=== PATIENT | female | born 1995 | race Caucasian/White ===

== ENCOUNTER 2023-10-31 12:51 | Outpatient (CLI) | payer MEDICAID, SELFPAY ==
--- NOTE | 2023-10-31 13:00 | CRLHL7_ITS ---
For Patients: As a result of the Cures Act, medical imaging exams and procedure reports are released immediately into your electronic medical record. You may view this report before your referring provider. If you have questions, please contact your health care provider. INDICATION: First trimester scan, establish dates. COMPARISON: None. TECHNIQUE: Real-time schafer-scale imaging of the pelvis was performed. FINDINGS: Sonographic imaging demonstrates a single living intrauterine gestation. The embryo demonstrates a regular cardiac rate measuring 165 beats per minute. The embryo`s crown-rump length measurement of 4.1 cm corresponds to a gestational age of 11 weeks 0 days with a sonographic due date of 05/21/2024. There is a normal-appearing yolk sac. There are no gross abnormalities noted within the embryo at this early state of development. The gestational sac has a normal appearance. There is no evidence of a perigestational hemorrhage. The amount of fluid within the sac appears appropriate for gestational age. The cervix is closed. The myometrium appears normal. The ovaries are of normal size. Corpus luteal cyst right ovary. There are no suspicious fluid collections noted in the cul-de-sac. IMPRESSION: Single living intrauterine with sonographic gestational age 11 weeks 0 days and a sonographic due date of 05/21/2024. Dictated by Sam Zhou MD @ 10/31/2023 2:50:49 PM (Electronically Signed)
== END 2023-10-31 12:52 | disposition home or self-care (01) ==
LOC: US 12:52
PROVIDERS: Visit Provider Advanced Practice Midwife
DX: Z34.91 Encounter for supervision of normal pregnancy, unspecified, first trimester (principal); Z3A.09 9 weeks gestation of pregnancy
CPT/HCPCS: 76817; 86592; 86703; 86704; 86706; 86762; 86787; 86803; 86850; 86900; 86901; 87086; 87340

== ENCOUNTER 2023-10-31 14:27 | Outpatient (CLI) | payer OTHER, SELFPAY | END 2023-10-31 14:28 | disposition home or self-care (01) | PROVIDERS: Visit Provider Advanced Practice Midwife | DX: Z34.91 Encounter for supervision of normal pregnancy, unspecified, first trimester (principal); Z3A.09 9 weeks gestation of pregnancy | CPT/HCPCS: 86592; 86703; 86704; 86706; 86762; 86787; 86803; 86850; 86900; 86901; 87086; 87340 ==

== ENCOUNTER 2023-11-29 10:35 | Outpatient (CLI) | payer MEDICAID, SELFPAY | END 2023-11-29 10:36 | disposition home or self-care (01) | LOC: NFLDREF 12-03 15:15 | PROVIDERS: Visit Provider Obstetrics & Gynecology | DX: Z11.3 Encounter for screening for infections with a predominantly sexual mode of transmission (principal) | CPT/HCPCS: 87491; 87522; 87591 ==

== ENCOUNTER 2023-12-26 11:16 | Outpatient (CLI) | payer MEDICAID, SELFPAY ==
--- NOTE | 2023-12-26 11:15 | CRLHL7_ITS ---
For Patients: As a result of the Century Cures Act, medical imaging exams and procedure reports are released immediately into your electronic medical record. You may view this report before your referring provider. If you have questions, please contact your health care provider. INDICATION: Evaluate anatomy. COMPARISON: 10/31/2023 TECHNIQUE: Real time schafer scale imaging of the fetus was performed as well as color Doppler analysis of the umbilical vessels. FINDINGS: Sonographic imaging demonstrates a single living intrauterine gestation. Fetus demonstrates a regular cardiac rate of 149 beats per minute. Fetus has a variable position. The placenta lies posteriorly. Possible succenturiate placenta. Placental edge is located 5.2 cm from the internal cervical os. Amniotic fluid volume appears normal. Single deepest vertical pocket: 3.8 cm. The cervix is closed and measures 4.1 cm in length. The composite ultrasound gestational age is calculated at 19 weeks 4 days with an estimated sonographic due date of 05/17/2024. The estimated weight is 295 grams which lies at the 74th %. The following biometric measurements were obtained: Biparietal diameter: 4.5 cm/19 weeks 4 days 74th% Head circumference: 16.7 cm/19 weeks 3 days 61st% Abdominal circumference: 14.6 cm/19 weeks 6 days 75th% Femur length: 2.9 cm/19 weeks 0 days 44th% The HC/AC ratio measures: 1.14 range (1.08-1.26) On anatomic survey, there is a normal appearance of the cerebral ventricles, cavum septi pellucidi, cisterna magna and cerebellum. The nose, lips, and facial profile appear normal. The cervical, thoracic and lumbar spine are well visualized and appear normal. There is a incomplete visualization of the four-chamber heart view. The left and right ventricular outflow tracts appear normal. The diaphragm and stomach appear normal. The kidneys and bladder also appear normal. There is a normal three-vessel cord and cord insertion site. The four extremities appear normal. IMPRESSION: Concordance of clinical and sonographic dating. Incomplete visualization of the four-chamber heart. Remainder of the anatomic survey is normal. Short-term follow-up recommended. Possible succenturiate placenta. Follow-up recommended. No previa. Dictated by Sam Zhou MD @ 12/28/2023 7:27:26 AM (Electronically Signed)
== END 2023-12-26 11:17 | disposition home or self-care (01) ==
LOC: US 11:18
PROVIDERS: Visit Provider Obstetrics & Gynecology
DX: Z34.92 Encounter for supervision of normal pregnancy, unspecified, second trimester (principal); Z3A.19 19 weeks gestation of pregnancy
CPT/HCPCS: 76805; 87522

== ENCOUNTER 2024-02-27 09:36 | Outpatient (CLI) | payer MEDICAID, SELFPAY | END 2024-02-27 09:37 | disposition home or self-care (01) | LOC: NFLDREF 02-29 05:46 | PROVIDERS: Visit Provider Obstetrics & Gynecology | DX: Z34.93 Encounter for supervision of normal pregnancy, unspecified, third trimester (principal); Z3A.28 28 weeks gestation of pregnancy | CPT/HCPCS: 86592 ==

== ENCOUNTER 2024-03-28 12:06 | Outpatient (CLI) | payer MEDICAID, SELFPAY ==
--- NOTE | 2024-03-28 12:15 | CRLHL7_ITS ---
For Patients: As a result of the Cures Act, medical imaging exams and procedure reports are released immediately into your electronic medical record. You may view this report before your referring provider. If you have questions, please contact your health care provider. OBSTETRICAL ULTRASOUND ??? FOLLOW-UP INDICATION: Malformation of placenta (bilobed). MICHAEL by US: 05/21/2024 Gestational age: 32 weeks 2 days GESTATION: Single COMPARISON: 01/16/2024 TECHNIQUE: Realtime schafer-scale imaging of the fetus was performed transabdominal. FINDINGS: Cervix: Not visualized positioning: Vertex Amniotic fluid: 4.0 cm SDP Placenta technique: Transabdominal Placenta position: Anterior, posterior, left wall heart rate: 154 bpm BIOMETRY: BPD: 8.5 cm, 34 weeks 0 days, 88% HC: 30.9 cm, 34 weeks 4 days, 73% AC: 29.9 cm, 33 weeks 6 days, 89% FL: 6.3 cm, 32 weeks 4 days, 46% FL/AC Ratio: 21.06% HC/AC ratio: 1.03 EFW: 2232 grams; 4 lbs. 15 oz. age by this ultrasound: 33 weeks 5 days MICHAEL by this US: 05/11/2024 Percentile by MICHAEL: 80.5% IMPRESSION: 1. Sonographic gestational age of 33 weeks 5 days and sonographic due date of 05/11/2024. Sonographic age 10 days ahead of the clinical age. 2. Estimated weight is 81st percentile. Abdominal circumference is 89th percentile. SAM DICKERSON M.D. Diagnostic Radiologist [email or web address] Transcribed: 2:[address]/Dictated by: Sam Dickerson MD @ 03/28/2024 1:28:00 PM (Electronically Signed)
== END 2024-03-28 12:07 | disposition home or self-care (01) ==
LOC: US 12:07
PROVIDERS: Visit Provider Obstetrics & Gynecology
DX: O43.193 Other malformation of placenta, third trimester (principal); Z3A.32 32 weeks gestation of pregnancy
CPT/HCPCS: 76816

== ENCOUNTER 2024-04-09 09:18 | Outpatient (CLI) | payer MEDICAID, SELFPAY | END 2024-04-09 09:19 | disposition home or self-care (01) | LOC: NFLDREF 04-11 01:29 | PROVIDERS: Visit Provider Obstetrics & Gynecology | DX: Z34.93 Encounter for supervision of normal pregnancy, unspecified, third trimester (principal); Z3A.34 34 weeks gestation of pregnancy | CPT/HCPCS: 82728 ==

== ENCOUNTER 2024-04-23 10:30 | Outpatient (CLI) | payer MEDICAID, SELFPAY | END 2024-04-23 10:31 | disposition home or self-care (01) | LOC: NFLDREF 04-25 08:06 | PROVIDERS: Visit Provider Obstetrics & Gynecology | DX: Z34.83 Encounter for supervision of other normal pregnancy, third trimester (principal) | CPT/HCPCS: 87081; 87653 ==

== ENCOUNTER 2024-05-27 17:03 | Inpatient (IN) | payer MEDICAID, SELFPAY ==
--- NOTE | 2024-05-27 17:40 | P.OBHP_ITS ---
OB - H&P: HPI Labor/Induction History of Present Illness Date Seen: 05/27/24 Chief Complaint: The patient is a 29 year old 2 para 1001 at 40 6/7 weeks gestation by early ultrasound, who presents for induction of labor secondary to postdates gestation. Chief complaint: Postdates IOL : 2 Para: 1 Indications for induction: prolonged Narrative: She denies contractions, unusual vaginal discharge, vagianl bleeding or leakage of fluid. Her fetus is active. Her full H&P was done by Dr. Mars on 05/01/2024. Specific Issues/Plans , Partner: Geo Colvin Daughter Helene Baby: Hue H&P by [facility] on 05/01/24 #Bilobed vs succturate placenta * thin connection visualized * Level II follow up scan: 01/16/2024. Bilobed placenta (posterior and fundal left/lateral) with normal cord insertion into the posterior aspect. * Growth ultrasound recommended at 32 weeks gestation: EFW 80.5% * Increased risk for retained products of conception after # History of genital herpes * Valtrex at 36 weeks: Prescribed 04/23/2024 # History of genital warts # Tobacco abuse - e-cig * As of 32 weeks, she is down to 0% nicotine on vape # History of substance abuse. Completed treatment. Has been sober since age 17 * Prefers to avoid opioids if possible # Obesity BMI 34.6 at [facility] # History of Hepatitis C, + Antibody screen at [facility] Per patient, she had this many years ago and was explained to her as dormant and would go away VU signed and faxed for [facility] on 11/29/2023 Hep C quant NAAT lab ordered drawn 12/25 - Negative #Anemia at 28 wks 10.7 at 34 weeks on 04/09/24 hgb: 10.3 Ferrous sulfate 2 tabs QOD with meals. Imagin01/16/24 Level 2 US ([facility]): EFW 21%, bi-lobed placenta (left lateral/fundal) with normal cord insertion into the posterior portion, no anomalies. Rec: growth US at 32 weeks gestation. 03/28/2024 US for EFW: Vertex. SDP 4.0 cm. Anterior, posterior and left wall placenta, no previa. EFW 2232 g, 4 lb 15 oz, 81%. BPD 88%, HC 73%, AC 89%, FL 46% Vaccinations: COVID: declined Flu: declined Tdap: 03/14/2024 RSV: 04/23/2024 32 week mental health: NAKUL = 2, PHQ = 1 Last pap: 2022, NILM, negative HPV GBS negative 04/23 History of Present Dating criteria: based on 1st trimester US only care: good care Ultrasounds: normal 1st trimester US and normal mid trimester US (bilobed placenta seen) Medical complications: none Labs Blood type: O (+) positive Rubella: immune RPR/VDLR: nonreactive GBS status: negative HBsAG: negative Narrative: Hep C antibody reactive Review of Systems Status of ROS: Reports: 10 or more systems reviewed and unremarkable except as noted in History and below Meds Home Medications and Allergies Home Medications ?Medication ?Instructions ?Recorded ?Confirmed ?Type HCD-pecb-SL-omega 3-fat com #1 27 cap PO 10/31/23 05/21/24 History mg-1 mg-300 mg capsule Allergies Allergy/AdvReac Type Severity Reaction Status Date / Time No Known Allergies Allergy Unknown Verified 05/21/24 10:36 OB - H&P: Exam Constitutional: Constitutional: no acute distress Routine Respiratory Exam: Respiratory: Absent respiratory distress Detailed Labor and Delivery Exam: Patient Gravid: Yes Dilation (cm): 2 Effacement (%): 50 Cervix position: mid Consistency: firm Tachysystole: No Comments: No genital lesions noted Fetus (Single): Station: -2 (ballotable) Amniotic Membrane Status: intact Heart Rate Baseline: 140 Monitor Accelerations: Present Monitor Decelerations: None OB - Problem Based A/P Additional Plan (1) Post-dates : Status: Acute (2) Bilobed placenta: Status: Acute (3) Hepatitis C antibody test positive: Status: Acute (4) History of herpes genitalis: Status: Acute Delivery/Labor/Induction Plan Plan: induction Induction method: per misoprostol protocol (2 doses q4 hours tonight. Begin pitocin per protocol at 6:00 am tomorrow.)
[2024-05-27 17:56] VITALS: BP 120/72; PULSE 79; PULSE 81; O2SAT 98
[2024-05-27 18:10] VITALS: BMI 37.5
[2024-05-27] MEDS: miSOPROStoL 25 MCG/0.25 TABLET VAGINAL ×2 (18:46→22:16)
[2024-05-27 19:31] VITALS: BP 125/72; PULSE 86; TEMP 36.6
[2024-05-27 19:32] VITALS: PULSE 90; O2SAT 98
[2024-05-27 22:13] VITALS: BP 123/74; PULSE 78; PULSE 81; TEMP 36.7; O2SAT 96
[2024-05-27 22:56] LABS: Basophils Absolute Auto 0.03 K/uL (0.00-0.30); Basophils Percent Auto 0.3 % (0.0-3.0); Eosinophils Absolute Auto 0.06 K/uL (0.00-0.50); Eosinophils Percent Auto 0.7 % (0.0-7.0); Hematocrit 33.2 % (33.0-51.0); Immature Granulocytes Abs Auto 0.21 K/uL (0.00-0.30); Immature Granulocytes Pct Auto 2.4 %; Lymphocytes Absolute Auto 2.09 K/uL (0.90-2.90); Lymphocytes Percent Auto 24.1 % (20-44); Mean Corpuscular HGB Conc 33 gm/dL (32-36); Mean Corpuscular Hemoglobin 31 pg (26-34); Mean Corpuscular Volume 93 fL (80-100); Monocytes Percent Auto 6.2 % (0.0-11.0); Neutrophils Absolute Auto 5.74 K/uL (1.7-7.0); Neutrophils Percent Auto 66.3 % (42.0-72.0); Platelet Count* 245 K/uL (140-440); RDW Coefficient of Variation % 14.4 % (11.5-15.5); Red Blood Count 3.59 m/uL (4.00-5.20); White Blood Count* 8.67 K/uL (4.50-11.00)
[2024-05-27 22:58] LABS: Slide Review Reflex No
[2024-05-28] VITALS (36 sets, daily range): BP systolic 95–148; BP diastolic 50–81; PULSE 67–106; RESP 16–18; TEMP 36.6–36.7; O2SAT 97–100
[2024-05-28] MEDS: hydrOXYzine pamoate 25 MG CAPSULE 100 MG PO (02:00)
[2024-05-28] MEDS: LACTATED RINGERS 1000 ML 1,000 ML IV (02:53)
[2024-05-28] MEDS: fentaNYL 250 MCG/5 ML inj 100 MCG EPIDURAL (03:24)
[2024-05-28] MEDS: ROPIVACAINE 0.2% 100 ml 100 ML 12 MG EPIDURAL (03:26)
[2024-05-28] MEDS: LIDOCAINE 2% (PF) 5 ML VIAL EPIDURAL (03:26)
--- NOTE | 2024-05-28 03:35 | P.ANBPRC_ITS ---
[facility] Medical History History of hepatitis C ?Z86.19 - Personal history of other infectious and parasitic diseases (ICD- 10) History of herpes genitalis ?Z86.19 - Personal history of other infectious and parasitic diseases (ICD- 10) History of substance abuse ?F19.11 - Other psychoactive substance abuse, in remission (ICD-10) Normal spontaneous vaginal delivery ?O80 - Encounter for full-term uncomplicated delivery (ICD-10) History of depression ?Z86.59 - Personal history of other mental and behavioral disorders (ICD-10) Surgical History [place] teeth extracted ?K08.409 - Partial loss of teeth, unspecified cause, unspecified class (ICD- 10) No significant past surgical history Family History Maternal Grandmother Ovarian cancer Paternal Grandmother Heart disease Maternal Grandfather Prostate cancer Mother High blood pressure Father High cholesterol Social History Narrative: SOCIAL Education: some college Work: housekeeping and front end architect at [employer] Partner: Geo Colvin - significant other general education professor at [employer] Lives with: partner and daughter Pets: 2 cats and 2 dogs Abuse: Denies past/present Special Diet: Denies Ok with a blood transfusion: yes Culture or islam beliefs: denies RISK FACTORS Exercise Times/wk: at work and walk dogs most days Depression/Anxiety: situational after getting sober NAKUL: 1 PHQ 9: 2 Seat Belt Use: Routinely Smoking: uses e-cigarettes. Trying to cut back further but has reduced some already. Alcohol/day: Denies while Caffeine: 1 cup coffee Drug Use: Denies present. 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 Rarely consumes alcohol Smoker- uses E cigarettes. 4-5 x/day What is your current living situation?: I presently have a place to live Problems where you live: no known problems In the past 12 months, utilities in danger of being shut off: no In past 12 months, lack of transportation kept you from medical appts, meetings, work, or getting things needed for daily living: no In the past 12 mos, have been you worried that your food would run out before you had money to buy more?: never true In the past 12 mos, the food you bought just didn't last and you didn't have money to buy more?: never true Smoking Status: Current every day smoker How often does anyone, including family, friends and others, physically hurt you : never How often does anyone, including family, friends and others, insult or talk down to you: never How often does anyone, including family, friends and others, threaten you with harm: never How often does anyone, including family, friends and others, scream or curse at you: never Meds Home Medications and Allergies Home Medications ?Medication ?Instructions ?Recorded ?Confirmed ?Type IUR-bbzj-GR-omega 3-fat com #1 27 1 cap PO DAILY 10/31/23 05/27/24 History mg-1 mg-300 mg capsule Allergies Allergy/AdvReac Type Severity Reaction Status Date / Time No Known Allergies Allergy Unknown Verified 05/27/24 18:01 Results Labs Labs: Laboratory Results - last 24 hr 05/27/24 22:10 WBC 8.67 RBC 3.59 L Hgb 11.0 L Hct 33.2 MCV 93 MCH 31 MCHC 33 RDW Coeff of Gagan 14.4 Plt Count 245 Neut % (Auto) 66.3 Lymph % (Auto) 24.1 [place]idan % (Auto) 6.2 Eos % (Auto) 0.7 Baso % (Auto) 0.3 Neut # (Auto) 5.74 Lymph # (Auto) 2.09 [place]idan # (Auto) 0.50 Eos # (Auto) 0.06 Baso # (Auto) 0.03 Abs Immat Gran (auto) 0.21 Imm/Tot Granulo (auto) 2.4 Vital Signs Vital Signs: Last Vital Signs Temp 98.1 F 05/27/24 22:13 Pulse 90 05/28/24 03:29 BP 133/62 05/28/24 03:29 Pulse Ox 100 05/28/24 03:26 Weight: 122.016 kg Height: 180.34 cm Anesthesia Procedures Epidural Insertion Patient Location: OB Start Time: :45 Stop Time: 03:45 Start Date: 05/28/24 Stop Date: 05/28/24 Reason for Block: primary anesthetic Patient Position: sitting Performed By: Bruce Alejandre Preanesthetic Checklist: IV checked, risks and benefits discussed, surgical consent, monitors and equipment checked, pre-op evaluation, timeout performed and anesthesia consent Prep: chlorhexidine gluconate Monitoring: blood pressure monitoring, court recording monitor, continuous pulse oximetry and heart rate Approach: midline Vertebral Space: lumbar (1-5) Needle Type: Tuohy needle Injection Technique: continuous catheter Needle gauge: 17 Needle Length (cm): 10 cm Needle Insertion Depth (cm): 6 Catheter Gauge: 19 Catheter Type: multi-orifice Catheter at skin depth (cm): 12 Test Dose Result: negative and lidocaine 1.5% with epinephrine 1 to 200,000 Events: other
[2024-05-28] MEDS: LACTATED RINGERS 1000 ML 1,000 ML 125 ML IV (04:31)
[2024-05-28] MEDS: OXYTOCIN 30 unit/500 ML in NS 30 UNIT/500 ML BAG 300 UNIT IVPB (05:48)
[2024-05-28] MEDS: LIDOCAINE 1 % PF 30 ML INJECTION (05:51)
--- NOTE | 2024-05-28 06:18 | W.PM.OBVAGDE ---
OB Procedure Vag Delivery Mother Details Mother Details: The patient is a 29 year-old, 2, Para 1001, admitted on 05/27/24 at 40 6/7 weeks gestation for postdates induction of labor. Chaves score was 6 at the time of admission. : 2 Para: 1 Weeks Gestation: 41 Admission Date: 05/27/24 Additional Details Amniotic Membrane Status: intact Amniotic Membrane Rupture Date: 05/28/24 (uncertain time) Amniotic Membrane Fluid Description: Clear Analgesia/Anesthesia Type: Epidural Waterbirth: No Pitcoin: No Intrapartal Events: Labor Induction Induction Method: per misoprostol protocol (received 2 doses 25 mcg PV) Labor Onset: 02:35 (05/28/24) Complete: 04:13 Pushin:21 Heart: heart tones during second stage were 120s baseline with good variability. Delivery Details Delivery Date: 05/28/24 Delivery Time: 05:43 Route of delivery: Gender: Female Infant Viability: Alive; Heart Rate Present Position at Delivery: OA Delivery Details: Delivered via spontaneous vaginal delivery. was placed on maternal abdomen.? Cord was clamped and cut after a 30-60 second delay. Nose and mouth were bulb suctioned.? Infant weight pending. 1 Minute Interval Total Score: 7 5 Minute Interval Total Score: 8 Additional Details Shoulder Dystocia: No Placenta Delivery Time: 05:48 Placental Delivery Description: Spontaneous (bilobed placenta) Delivery repair: Chromic Procedure Done: Global Blood Loss: 200 Laceration: Perineal - 2nd Degree Episiotomy Description: None Blood Loss Measurement Type: QBL Bakri Used: No Sponge/Need Count Correct: Yes Cord Vessel Description: 3 Vessels Event Summary Status: Mother and were stable after delivery. Disposition: floor
[2024-05-28] MEDS: IBUPROFEN 600 MG TABLET PO ×2 (07:53→14:41)
--- NOTE | 2024-05-28 11:50 | PM.ANPOST ---
Post Anesthesia Note Post Anesthesia Note Patient seen: Inpatient Respiratory Status: adequate Cardiovascular Status: adequate Mental Status: baseline Pain: adequate Temp: baseline Anesthetic awareness: N/A Complications: none Follow care: none
[2024-05-28] MEDS: ACETAMINOPHEN 500 MG TABLET 1000 MG PO (16:09)
[2024-05-29 01:00] VITALS: BP 127/77; PULSE 78; RESP 15; TEMP 36.7; O2SAT 97
[2024-05-29] MEDS: IBUPROFEN 600 MG TABLET PO (02:27)
[2024-05-29 05:00] VITALS: BP 128/85; PULSE 78; RESP 16; TEMP 36.8; O2SAT 97
[2024-05-29 06:00] LABS: Hemoglobin* 12.2 gm/dL (12.0-16.0)
[2024-05-29 08:43] VITALS: BP 130/83; PULSE 88; RESP 18; O2SAT 98
--- NOTE | 2024-05-29 12:27 | PM.OBDSVD1 ---
Documented by User: Jessica Alvarez CNM 05/29/24 20:53 DS: Providers Provider Date of admission: 05/27/24 17:03 Primary care physician: Not a Local Provider Admitting Clinician: Carly Best MD Attending Physician on discharge: Carly Best MD DS: Diagnosis Discharge Diagnosis (1) care following vaginal delivery: Status: Acute (2) Lactating mother: Status: Acute (3) Tobacco abuse: Status: Acute Problem details: vapes. Exam Const: Vital Signs, click to edit/add: Vital Signs - 24 hr 05/28/24 16:00 05/28/24 20:40 05/29/24 01:00 Temperature 98 F 98.1 F 98.0 F Pulse Rate [Pulse Oximeter] 87 81 78 Respiratory Rate 16 17 15 Blood Pressure [Ri ght Arm] 108/71 120/71 127/77 Pulse Oximetry 97 97 97 Oxygen Delivery Me thod Room Air Room Air Room Air 05/29/24 05:00 05/29/24 08:43 Temperature 98.2 F Pulse Rate [Pulse Oximeter] 78 88 Respiratory Rate 16 18 Blood Pressure [Ri ght Arm] 128/85 130/83 Pulse Oximetry 97 98 Oxygen Delivery Me thod Room Air Room Air Documenting provider has reviewed patient's vital signs: yes OB - DS: Summary Hospital Course Hospital Course: The patient is a 29 year old G [] P [] at [] weeks gestation that was admitted to the Center on 05/27/24 for []. She had an [uncomplicated/complicated] [vaginal/] delivery. She delivered a viable [male/female] infant. She is [breast/bottle] feeding. the patient has done well. Gender: Female Time Spent with Patient Time attestation: Total time spent providing and/or coordinating discharge services: Discharge Plan Discharge Disposition: Home, Self-Care Date of Admission: 05/27/24 17:03 Attending Provider on Discharge: Jessica Alvarez Consulting Providers: Mehreen Tariq Primary Care Provider: Provider,Not a Local Condition: Stable Anticipated Discharge Date/Time: 05/29/24 13:00 Discharge Medications: New docusate sodium 100 mg Capsule 100 mg PO DAILY Qty: 90 0RF Rx Instructions: Take 1-2 tablets daily as needed for constipation. ibuprofen 600 mg Tablet 600 mg PO Q6H PRNQty: 60 0RF Continued [id number] 3-fat com #1 27-1-300 mg capsule 1 cap PO DAILY valacyclovir 500 mg tablet 500 mg PO BID PRN (Reason: herpes outbreak) Qty: 6 3RF Discontinued valacyclovir 500 mg tablet 500 mg PO BID Qty: 100 0RF ferrous sulfate 325 mg (65 mg iron) tablet 325 mg PO Q OTHER DAY Qty: 30 1RF Discharge Orders: Discharge Order (Routine); Ordered 05/29/24 Ordered By: Jessica Alvarez Consulting provider completed their portion of the discharge: Yes Patient Education: OB Over the Counter Medication Information, OB Vaginal/Breast Feeding Additional Instructions: Discharge instructions were reviewed with the patient including signs and symptoms of infection and home going medications.? Lifting Restrictions: 20 pounds for 6? weeks? ?? Do not drive while taking narcotic pain meds.? Off Work or School for 6 weeks.? ?? Symptoms to report to doctor:? -Bleeding that saturates more than one pad per hour? -Passing clots larger than the size of a golf ball? -Pain not relieved by prescribed medication? -Fever above 100.4 degrees Fahrenheit? -A foul vaginal odor? -Difficulty in emotions, mood and functions? -Thoughts of hurting yourself and/or ? -Painful, reddened area in your breast? -Any drainage, redness or tenderness in your IV/epidural site? -Severe headache that doesn't improve after taking medications? -Changes in vision, including temporary loss of vision, blurred vision, and/or light sensitivity? -Upper abdominal pain (usually under ribs on the right side)? -Decrease in urination or painful, frequent urinating? -Chest pain? -Shortness of breath? -Tenderness or pain with redness and/swelling in the calf(s) of your leg? ?? Follow Up in clinic in 2 and 6 weeks.? ?? consultation services are available to all mothers and babies for the first year after delivery.? To make an appointment, please call [phone].? Activity Level: No Restrictions Discharge Diet: Regular Follow Up Appointments: [facility] [Provider Group] Provider,Not a Local [Primary Care Provider] - Forms: [employer] Info Instructions Documented by User: Gogo Land 05/29/24 18:07 DS: Providers Provider Time Seen by Provider: 08:51 Date Seen: 05/29/24 Attending Physician on discharge: Jessica Alvarez CNM Date of Discharge: 05/29/24 DS: Diagnosis Discharge Diagnosis (1) care following vaginal delivery: Status: Acute (2) Lactating mother: Status: Acute (3) Tobacco abuse: Status: Acute Problem details: vapes. Exam Narrative: Exam Narrative: Vitals Reviewed Constitutional:? Alert and oriented x3 HEENT:? Normocephalic, atraumatic Neck:? Supple Lungs:? Clear to auscultation bilaterally Breasts: deferred Heart:? Regular rate and rhythm, no murmur, rub or gallop Abdomen:? Soft, nontender, Fundus firm -1 from umbilicus. GI: Bowel sounds active Perineum: deferred Extremities:? Slight edema OB - DS: Summary Hospital Course Hospital Course: The patient is a 29 year old G 2 P 2 at 41 0/7 weeks gestation that was admitted to the Center on 05/27/24 for IOL due to postdates. She had an uncomplicated vaginal delivery. She delivered a viable female . She is breast feeding without complications. Reviewed S/Sx mastitis. Denies nipple or breast discomfort at this time. Deferred breast exam. the patient has done well. Goals achieved for DC to home with . Bleeding similar to heavy period, denies soaking through a pad in an hour, reports 1 small clot. Reviewed signs of too much bleeding and when to call. Reports having BM last night, denies discomfort or need to strain. Denies dysuria. Reviewed S/Sx DVT and PE. Discussed risks for infection to perineum, care for repair/stitches. Instructions to call with fever greater than 100.4 F. Reviewed warning signs of preeclampsia, call with S/Sx or with elevated BPs. Discussed plan for PP contraception, would like to restart progesterone only OCP at 6 week follow up. Mood assessment, patient currently feels stable. Warning signs reviewed for PP depression and psychosis, when to reach out. Peripartum Data Infant delivery method: Vaginal Laceration description: Vaginal - 2nd Degree complications: none Discharge Plan: Home Status at Discharge Overall status at discharge: patient is progressing back to baseline Time Spent with Patient Time spent: Less than 30 minutes Discharge Plan Discharge Disposition: Home, Self-Care Date of Admission: 05/27/24 17:03 Attending Provider on Discharge: Jessica Alvarez Consulting Providers: Mehreen Tariq Primary Care Provider: Provider,Not a Local Condition: Stable Anticipated Discharge Date/Time: 05/29/24 13:00 Discharge Medications: New docusate sodium 100 mg Capsule 100 mg PO DAILY Qty: 90 0RF Rx Instructions: Take 1-2 tablets daily as needed for constipation. ibuprofen 600 mg Tablet 600 mg PO Q6H PRNQty: 60 0RF Continued [id number] 3-fat com #1 27-1-300 mg capsule 1 cap PO DAILY valacyclovir 500 mg tablet 500 mg PO BID PRN (Reason: herpes outbreak) Qty: 6 3RF Discontinued valacyclovir 500 mg tablet 500 mg PO BID Qty: 100 0RF ferrous sulfate 325 mg (65 mg iron) tablet 325 mg PO Q OTHER DAY Qty: 30 1RF Discharge Orders: Discharge Order (Routine); Ordered 05/29/24 Ordered By: Jessica Alvarez Consulting provider completed their portion of the discharge: Yes Patient Education: OB Over the Counter Medication Information, OB Vaginal/Breast Feeding Additional Instructions: Discharge instructions were reviewed with the patient including signs and symptoms of infection and home going medications.? Lifting Restrictions: 20 pounds for 6? weeks? ?? Do not drive while taking narcotic pain meds.? Off Work or School for 6 weeks.? ?? Symptoms to report to doctor:? -Bleeding that saturates more than one pad per hour? -Passing clots larger than the size of a golf ball? -Pain not relieved by prescribed medication? -Fever above 100.4 degrees Fahrenheit? -A foul vaginal odor? -Difficulty in emotions, mood and functions? -Thoughts of hurting yourself and/or ? -Painful, reddened area in your breast? -Any drainage, redness or tenderness in your IV/epidural site? -Severe headache that doesn't improve after taking medications? -Changes in vision, including temporary loss of vision, blurred vision, and/or light sensitivity? -Upper abdominal pain (usually under ribs on the right side)? -Decrease in urination or painful, frequent urinating? -Chest pain? -Shortness of breath? -Tenderness or pain with redness and/swelling in the calf(s) of your leg? ?? Follow Up in clinic in 2 and 6 weeks.? ?? consultation services are available to all mothers and babies for the first year after delivery.? To make an appointment, please call [phone].? Activity Level: No Restrictions Discharge Diet: Regular Follow Up Appointments: [facility] [Provider Group] Provider,Not a Local [Primary Care Provider] - Forms: [employer] Info Instructions
[2024-05-29 12:38] VITALS: BP 120/72
[2024-05-29 13:29] LABS: Rapid Plasma Reagin (RPR) Non Reactive (Non Reactive)
== END 2024-05-29 14:15 | disposition home or self-care (01) | DRG 806 ==
PROVIDERS: Admitting Provider Obstetrics & Gynecology; Visit Provider Obstetrics & Gynecology
DX: O48.0 Post-term pregnancy (principal); O98.32 Other infections with a predominantly sexual mode of transmission complicating childbirth; Z37.0 Single live birth; O70.1 Second degree perineal laceration during delivery; O43.193 Other malformation of placenta, third trimester; Z3A.40 40 weeks gestation of pregnancy; A60.00 Herpesviral infection of urogenital system, unspecified; F11.11 Opioid abuse, in remission; O99.02 Anemia complicating childbirth; D64.9 Anemia, unspecified; O99.334 Smoking (tobacco) complicating childbirth; F17.290 Nicotine dependence, other tobacco product, uncomplicated; Z86.19 Personal history of other infectious and parasitic diseases
CPT/HCPCS: 01967; 36415; 59200; 85018; 85025; 86592; 88307; A9270; J2003; J2371; J2795; J3010; J7120

== ENCOUNTER 2025-01-24 12:05 | Outpatient (CLI) | payer BC, SELFPAY ==
[2025-01-24 23:05] LABS: Chlamydia DNA Amplified* NOT DETECTED (No Detected); GC DNA Amplified* NOT DETECTED (No Detected)
== END 2025-01-24 12:06 | disposition home or self-care (01) ==
LOC: FRMREF 12:21
PROVIDERS: Visit Provider Registered Nurse
DX: Z11.3 Encounter for screening for infections with a predominantly sexual mode of transmission (principal)
CPT/HCPCS: 87491; 87591